=== PATIENT | female | born 1985 | race Caucasian/White ===

== ENCOUNTER 2016-08-14 19:25 | Inpatient (IN) | payer OTHER ==
[2016-08-14 20:49] LABS: BILIRUBIN NEGATIVE (NEGATIVE); BLOOD 3+ Ery/uL (NEGATIVE); CLARITY HAZY (CLEAR); COLOR YELLOW (YELLOW); GLUCOSE (U) NORMAL (NORMAL); KETONE (U) NEGATIVE (NEGATIVE); LEUKOCYTES TRACE Leu/uL (NEGATIVE); NITRITE NEGATIVE (NEGATIVE); PROTEIN NEGATIVE (NEGATIVE); UROBILINOGEN 0.2 mg/dL (0.2-1.0)
[2016-08-14 20:54] LABS: AMORPHOUS URATES CRYSTALS TRACE; BACTERIA TRACE; MUCOUS TRACE; SQUAMOUS EPITHELIAL CELLS RARE; URINARY WBC RARE
[2016-08-14 22:13] LABS: HCT 31.6 % (37.0-47.0); HGB 10.4 g/dl (12.5-16.0); MCH 30.8 pg (25.0-31.0); MCHC 32.9 g/dL (32.0-36.0); MCV 93.5 fL (78.0-100.0); MPV 11.3 fL (6.0-9.5); RBC 3.38 M/uL (4.20-5.40); WBC 6.4 K/uL (4.0-10.5)
[2016-08-14 22:28] LABS: INR 0.99 (0.9-1.2); PROTHROMBIN TIME 12.7 SECONDS (11.7-14.0); PTT 25.3 SECONDS (23.2-31.4)
[2016-08-15 17:15] LABS: HGB 9.9 g/dl (12.5-16.0); MCH 30.8 pg (25.0-31.0); MCV 93.5 fL (78.0-100.0); MPV 10.8 fL (6.0-9.5); RBC 3.21 M/uL (4.20-5.40); RDW 14.1 % (11.5-14.0); WBC 8.4 K/uL (4.0-10.5)
== END 2016-08-17 11:50 | disposition home or self-care (01) | DRG 775 ==
LOC: FOD 19:25 → FOB 19:26 → FOD 21:32 → FOB 21:33
PROVIDERS: ADMIT Obstetrics & Gynecology
PROC: 10E0XZZ Delivery of Products of Conception, External Approach (ICD-10-PCS; principal; 2016-08-15)
PROC: 0KQM0ZZ Repair Perineum Muscle, Open Approach (ICD-10-PCS; 2016-08-15)
PROC: 4A1HX4Z Monitoring of Products of Conception, Cardiac Electrical Activity, External Approach (ICD-10-PCS; 2016-08-15)
DX: O62.3 Precipitate labor (principal); E66.9 Obesity, unspecified; Z3A.39 39 weeks gestation of pregnancy; Z37.0 Single live birth; O99.214 Obesity complicating childbirth; O99.824 Streptococcus B carrier state complicating childbirth; O99.02 Anemia complicating childbirth; O70.1 Second degree perineal laceration during delivery; Z68.33 Body mass index [BMI] 33.0-33.9, adult
CPT/HCPCS: 36415; 81001; 85384; 85610; 85730; J2540

== ENCOUNTER → 2021-02-11 | Day surgery (SDC) | payer OTHER ==
[~2021-02-11] VITALS: Ht 154.9 cm; Wt 88.0 kg
[~2021-02-11] MED LIST: IBUPROFEN800 M1 PO
[2021-02-11 09:30] LABS: HCG (URINE) SCREEN NEGATIVE (NEGATIVE)
== END | disposition home or self-care (01) ==
LOC: FAS 08:52
PROVIDERS: Obstetrics & Gynecology
DX: N93.9 Abnormal uterine and vaginal bleeding, unspecified (principal); N88.2 Stricture and stenosis of cervix uteri; D25.9 Leiomyoma of uterus, unspecified; G43.909 Migraine, unspecified, not intractable, without status migrainosus; L40.9 Psoriasis, unspecified; Z88.1 Allergy status to other antibiotic agents; Z88.5 Allergy status to narcotic agent; Z87.891 Personal history of nicotine dependence
CPT/HCPCS: 84703; J1100; J1885; J2250; J2405; J2704; J3010; J7120

== ENCOUNTER → 2021-03-11 | Day surgery (SDC) | payer OTHER ==
[~2021-03-11] VITALS: Ht 154.9 cm; Wt 88.0 kg
[~2021-03-11] MED LIST changes: +COLACE100 MG PO; +PERCOCET 5-3251 EACH PO; +ZOFRAN4 M1 PO
[2021-03-11 07:31] LABS: HCG (URINE) SCREEN NEGATIVE (NEGATIVE)
[2021-03-11 07:53] LABS: HCT 38.9 % (37.0-47.0); HGB 12.6 g/dl (12.5-16.0); MCH 30.4 pg (25.0-31.0); MCHC 32.4 g/dL (32.0-36.0); MPV 10.9 fL (6.0-9.5); RBC 4.14 M/uL (4.20-5.40); RDW 13.3 % (11.5-14.0); WBC 3.9 K/uL (4.0-10.5)
== END | disposition home or self-care (01) ==
LOC: FAS 06:56
PROVIDERS: Obstetrics & Gynecology
DX: N72 Inflammatory disease of cervix uteri (principal); D25.1 Intramural leiomyoma of uterus; N80.0 Endometriosis of uterus; N93.9 Abnormal uterine and vaginal bleeding, unspecified; K66.0 Peritoneal adhesions (postprocedural) (postinfection); M19.90 Unspecified osteoarthritis, unspecified site; D25.9 Leiomyoma of uterus, unspecified; G43.909 Migraine, unspecified, not intractable, without status migrainosus; N88.2 Stricture and stenosis of cervix uteri; Z87.891 Personal history of nicotine dependence; Z88.5 Allergy status to narcotic agent; Z88.1 Allergy status to other antibiotic agents; Z80.8 Family history of malignant neoplasm of other organs or systems
CPT/HCPCS: 36415; 84703; 86850; 86900; 86901; 93005; J0690; J1100; J1170; J2250; J2405; J2704; J3010; J7120